=== PATIENT | male | born 1955 | race Caucasian/White ===

== ENCOUNTER 2018-01-18 15:56 | Outpatient (CLI) | payer MEDICAID ==
[~2018-01-18 15:56] MED LIST: ACET-1074 PO; BACL10TA2 PO; DEXT15LI10 PO; DULR RC; LORA-512 PO; MAGN800O PO; OMEP40CA37 PO; PSEU60TA22 PO
== END 2018-01-18 23:59 | disposition home or self-care (01) ==
LOC: RAD 15:56
PROVIDERS: ATTEND Family Medicine
DX: R13.12 Dysphagia, oropharyngeal phase (principal); R47.1 Dysarthria and anarthria; Z79.899 Other long term (current) drug therapy
CPT/HCPCS: 74230